=== PATIENT | male | born 1965 | race Caucasian/White ===

== ENCOUNTER 2023-10-12 21:26 | Emergency (ER) | payer OTHER, BC ==
[2023-10-12 21:48] VITALS: BP 126/84; PULSE 92
[2023-10-12] MEDS ORDERED: Tetracaine HCl/PF 0.5% 4 ML Bottle EYEBOTH ONE (23:08)
== END 2023-10-12 23:34 | disposition home or self-care (01) ==
LOC: FB.ED 21:26
DX: H57.89 Other specified disorders of eye and adnexa (principal); Z88.6 Allergy status to analgesic agent
CPT/HCPCS: 99283